=== PATIENT | male | born 1980 | race Two or more races ===

== ENCOUNTER 2019-05-09 12:50 | Emergency (ER) | payer OTHER ==
[~2019-05-09] VITALS: Ht 172.7 cm; Wt 113.9 kg
[2019-05-09 14:23] VITALS: BP 121/82
[2019-05-09] MEDS ORDERED: cefTRIAXone SOD 1,000 MG VL IM ONE ×2 (15:00)
[2019-05-09] MEDS ORDERED: IBUPROFEN 800 MG TAB PO ONE (15:00)
== END 2019-05-09 15:17 ==
LOC: ER 12:53 → EEVIPCON 12:53 → ER 15:17
DX: L73.9 Follicular disorder, unspecified (principal); J45.909 Unspecified asthma, uncomplicated; Z88.0 Allergy status to penicillin
CPT/HCPCS: 96372; 99284; J0696